=== PATIENT | female | born 1990 | race African-American/Black ===

== ENCOUNTER 2016-10-19 20:52 | Emergency (ER) | payer MEDICAID ==
[~2016-10-19] VITALS: Ht 149.9 cm; Wt 72.0 kg
[~2016-10-19 20:52] MED LIST: PAIN MED
[2016-10-19 20:54] VITALS: BP 127/72; PULSE 86; RESP 15; TEMP 98.1; O2SAT 99
--- NOTE | 2016-10-19 21:32 | PD ---
HPI Chief Complaint: Cold / Flu Symptoms Time Seen by Provider: 21:16 Travel History International Travel<30 days: No Contact w/Intl Traveler<30days: No Traveled to known affect area: No History of Present Illness HPI Patient is a 26-year-old female who comes in complaining of congestion for the past 3 months. She says she has occasional cough and feels like she has mucus stuck in her throat often. She says she has tried Mucinex and this has not helped. She has not had any fever or chills. She says sometimes when she eats she feels like things get stuck in her esophagus. She says she feels like she has acid reflux. She does report eating a lot of spicy food. She denies any abdominal pain. She denies any runny nose. PFSH Past Medical History Hx Anticoagulant Therapy: No Cardiovascular Problems: No Chemotherapy: No Cerebrovascular Accident: No Diabetes: No Respiratory: No Immunizations Current: Yes Tetanus Vaccination: Unknown Influenza Vaccination: No ?: Not LMP: 09/20/16 : 1 Para: 1 Past Surgical History Surgical History: No Previous Surgery Section: Yes Social History Alcohol Use: Yes (RARE) Tobacco Use: No Substance Use: No Allergies-Medications (Allergen,Severity, Reaction): Coded Allergies: No Known Allergies (Verified , 10/19/16) Reported Meds & Prescriptions Reported Meds & Active Scripts Active No Active Prescriptions or Reported Medications Review of Systems General / Constitutional: No: Fever, Chills HENT: Positive: Congestion, No: Headaches, Lightheadedness Cardiovascular: No: Chest Pain or Discomfort Respiratory: Positive: Cough, No: Shortness of Breath Gastrointestinal: No: Nausea, Vomiting, Abdominal Pain Musculoskeletal: No: Myalgias, Edema Skin: No Rash, No Change in Pigmentation Neurologic: No: Weakness, Dizziness Physical Exam Narrative GENERAL: Awake and alert, in no acute distress. SKIN: Warm and dry. HEAD: Atraumatic. Normocephalic. EYES: Pupils equal and round. No scleral icterus. No injection or drainage. ENT: Mucous membranes pink and moist. No tonsillar swelling or exudates. No pharyngeal erythema or edema. NECK: Trachea midline. No JVD. CARDIOVASCULAR: Regular rate and rhythm. No murmur appreciated. RESPIRATORY: No accessory muscle use. Clear to auscultation. Breath sounds equal bilaterally. GASTROINTESTINAL: Abdomen soft, non-tender, nondistended. Data Data Last Documented VS Vital Signs Date Time Temp Pulse Resp B/P Pulse Ox O2 Delivery O2 Flow Rate FiO2 10/19/16 20:54 98.1 86 15 127/72 99 Room Air MDM Medical Decision Making Medical Screen Exam Complete: Yes Emergency Medical Condition: Yes Differential Diagnosis Allergies versus GERD versus URI Narrative Course Patient is a 26-year-old female comes in complaining of congestion as well as heartburn. Exam shows no abnormalities. Patient does not seem to be having any symptoms currently. Patient advised to take sslm-luc-ficloyn allergy medication such as Claritin or Zyrtec or Lamar. Given prescription for Zantac. Advised to avoid spicy foods as well as tomatoes or tesfaye peppers. Advised to avoid caffeine, smoking, alcohol. Patient advised follow-up with a primary care physician. Advised to return to the ED as needed for any worsening symptoms. Diagnosis Primary Impression: GERD (gastroesophageal reflux disease) Qualified Code: K21.9 - Gastroesophageal reflux disease without esophagitis Additional Impression: Environmental and seasonal allergies Patient Instructions: General Instructions Additional Instructions: Take Loratadine or another over the counter allergy medication for mucus in your throat. Take the Zantac for heartburn daily. Avoid spicy foods. Follow up with a primary care physician. Return to the ED as needed for any worsening symptoms. Scripts Ranitidine (Zantac)150 Mg Lla215 Mg PO BID #60 TAB Ref 0 Prov:Char Veronica MD 10/19/16 Disposition: 01 DISCHARGE HOME Condition: Stable Char Veronica MD Oct 19, 2016 21:32
[2016-10-19] MEDS ORDERED: ZANT150T2 PO (21:37)
== END 2016-10-19 22:11 | disposition home or self-care (01) ==
LOC: NEPB 20:52
DX: K21.9 Gastro-esophageal reflux disease without esophagitis (principal); J30.2 Other seasonal allergic rhinitis
CPT/HCPCS: 99283